=== PATIENT | female | born 1945 | race Caucasian/White ===

== ENCOUNTER → 2016-10-17 | Outpatient (CLI) | payer MEDICARE | LOC: SP 13:07 | PROVIDERS: ATTEND Family Medicine | DX: R60.9 Edema, unspecified (principal) | CPT/HCPCS: 93971 ==

== ENCOUNTER 2016-11-15 12:30 | Observation (INO) | payer MEDICARE ==
[2016-11-15] MEDS ORDERED: NORMAL SALINE 250 ML IV PRN ×4 (12:37→15:39)
[2016-11-15 12:52] LABS: HGB HCT DIFFERENCE -1.6; MEAN CORPUSCULAR HEMOGLOBIN 19.3 pg (27.0-33.4); MEAN CORPUSCULAR HGB CONC 29.7 g/dL (32.0-36.0); MEAN CORPUSCULAR VOLUME 65 fl (80-97); RED BLOOD COUNT 2.22 10^6/uL (3.72-5.28); RED CELL DISTRIBUTION WIDTH 18.8 % (11.5-14.0); WHITE BLOOD COUNT 11.1 10^3/uL (4.0-10.5)
[2016-11-15 13:04] LABS: HEMATOCRIT 14.5 % (36.0-47.0); HEMOGLOBIN 4.3 g/dL (12.0-15.5)
[2016-11-15 13:19] LABS: ALANINE AMINOTRANSFERASE 20 U/L (9-52); ALBUMIN 3.2 g/dL (3.5-5.0); ALKALINE PHOSPHATASE 84 U/L (38-126); ASPARTATE AMINO TRANSFERASE 32 U/L (14-36); BILIRUBIN,DIRECT 0.2 mg/dL (0.0-0.4); BILIRUBIN,TOTAL 0.4 mg/dL (0.2-1.3); BLOOD UREA NITROGEN 14 mg/dL (7-20); CHLORIDE 89 mmol/L (98-107); CREATININE RESULT 0.55 mg/dL (0.52-1.25); GLUCOSE 130 mg/dL (75-110); LIPASE 75.3 U/L (23-300); POTASSIUM 4.8 mmol/L (3.6-5.0); SODIUM 137.4 mmol/L (137-145); TOTAL PROTEIN 6.5 g/dL (6.3-8.2)
[2016-11-15 13:22] LABS: CREATINE KINASE < 20 U/L (30-135)
[2016-11-15 13:25] LABS: ANION GAP 9 (5-19)
[2016-11-15 13:27] LABS: ANISOCYTOSIS 2+; BASOPHILS % (MANUAL) 0 % (0-2); EOSINOPHILS % (MANUAL) 3 % (0-6); HYPOCHROMASIA 2+; LYMPHOCYTES % (MANUAL) 9 % (13-45); MICROCYTOSIS 4+; OVALOCYTES 1+; POIKILOCYTOSIS 1+; ROULEAUX SLIGHT; SCHISTOCYTES SLIGHT; TOTAL CELLS COUNTED 100; TOXIC GRANULATION SLIGHT; TOXIC VACUOLATION PRESENT
[2016-11-15 13:28] LABS: CARBON DIOXIDE 39 mmol/L (22-30)
[2016-11-15 13:30] LABS: CREATINE KINASE MB 0.31 ng/mL (<4.55); TROPONIN I < 0.012 ng/mL
--- NOTE | 2016-11-15 13:43 | EKG REPORT ---
SEVERITY:- BORDERLINE ECG - SINUS RHYTHM ATRIAL PREMATURE COMPLEX BORDERLINE T WAVE ABNORMALITIES : Confirmed by: John Hernandez MD 15-Nov-2016 13:42:33
[2016-11-15 14:15] LABS: APPEARANCE,URINE CLOUDY; BILIRUBIN,URINE NEGATIVE (NEGATIVE); GLUCOSE, URINE NEGATIVE (NEGATIVE); KETONES,URINE NEGATIVE (NEGATIVE); LEUKOCYTE ESTERASE,URINE NEGATIVE (NEGATIVE); NITRITE,URINE NEGATIVE (NEGATIVE); PROTEIN,URINE NEGATIVE (NEGATIVE); URINE SPECIFIC GRAVITY 1.016
--- NOTE | 2016-11-15 14:58 | ER Document Report ---
ED General - General Chief Complaint: Abnormal Lab Results Stated Complaint: ABNORMAL LABS Time seen by provider: 12:25 Mode of Arrival: Stretcher Information source: Patient, Relative Notes: 71-year-old female long history of anemia for which she says she gets periodic blood transfusions who is in the hospital lab today for a scheduled blood draw to check on her anemia. Patient was found to have a hemoglobin of 4 and complained to staff in the lab of dizziness and weakness lasted deposition operator to page her to emergency overhead to emergency department staff responded including this physician. Upon my arrival the patient was awake and alert and sitting up in wheelchair she was placed on stretcher brought to the emergency department. The patient reports chronically having dark stools because fired supplementation but denies any hematemesis or hematochezia. She reports she does have a prior history of GI bleed says she does not believe she is having any GI bleeding in the past several weeks. She denies syncope. She denies fever, chills, cough, shortness of breath with her baseline, vomiting, chest pain, abdominal pain, or back pain. She denies dysuria, vaginal bleeding or discharge. Physical Exam: General: Alert, appears weak HEENT: Normocephalic. Atraumatic. PERRLA. Extraocular movements intact. Oropharynx clear. Membranes moist Neck: Supple. Non-tender. No JVD no carotid bruits Respiratory: No respiratory distress. Clear and equal breath sounds bilaterally. Cardiovascular: Regular rate and rhythm. Abdominal: Normal Inspection. Soft, non-tender. No distension. Normal Bowel Sounds. atrophic female external genitalia no blood in vaginal vault rectal normal tone dark green to brown stool no hemorrhoids Back: Non-tender. No deformity or step off. Extremities: All tremors warm to plus pulses of cyanosis no edema Neurological: Speech clear mentation normal representative personal service strength 5 out of 5 equal both upper extremities motor function 5 out of 5 equal both lower extremities Psychological: Normal affect. Normal Mood. Skin: Warm. Dry. Normal color. TRAVEL OUTSIDE OF THE [place] IN LAST 30 DAYS: No - Related Data Allergies/Adverse Reactions: penicillin G [Penicillin G] Allergy (Severe, Verified 11/15/16 12:33) Shortness of Breath codeine [Codeine] Allergy (Verified 11/15/16 12:33) numb Past Medical History - Social History Smoking Status: Former Smoker Chew tobacco use (# tins/day): No Frequency of alcohol use: None Drug Abuse: None Family History: Reviewed & Not Pertinent - Past Medical History Cardiac Medical History: Reports: Hx Hypertension - ? Denies: Hx Coronary Artery Disease, Hx Heart Attack Pulmonary Medical History: Reports: Hx COPD, Hx Pneumonia Denies: Hx Asthma, Hx Bronchitis Neurological Medical History: Denies: Hx Cerebrovascular Accident, Hx Seizures GI Medical History: Reports: Other - Remote history of GI bleed Musculoskeltal Medical History: Reports Hx Arthritis - rheumatoid Past Surgical History: Reports: Hx Hysterectomy. Denies: Hx Pacemaker - Immunizations Hx Diphtheria, Pertussis, Tetanus Vaccination: Yes Review of Systems - Review of Systems Constitutional: See HPI EENT: denies: Ear pain, Throat pain, Mouth pain Cardiovascular: See HPI Respiratory: denies: Cough, Short of breath, Wheezing Gastrointestinal: See HPI Genitourinary: denies: Burning, Dysuria Female Genitourinary: Post menopausal Musculoskeletal: denies: Back pain, Leg swelling, Ankle swelling Skin: denies: Rash Hematologic/Lymphatic: denies: Swollen glands Neurological/Psychological: denies: Weakness, Numbness Physical Exam - Vital signs Vitals: Temp Resp 98.5 F 24 H 11/15/16 12:32 11/15/16 12:32 Course - Re-evaluation Re-evalutation: 11/15/16 15:00 Patient's initial pulse oximetry was 84% patient is chronically on oxygen may have come off that during transport. She is otherwise remained hemodynamically stable for given her complaints of dizziness and her markedly low hemoglobin believe she requires admission for transfusion. Stools also heme positive but is unclear to what extent active GI bleed contributing to her anemia. Will order IV Protonix have consult at Dr. cates hospitalist service for admission 11/15/16 15:04 Critical care time excluding billable procedures 47 minutes - Vital Signs Vital signs: Temp Pulse Resp BP Pulse Ox 98.5 F 22 H 102/55 L 94 11/15/16 12:32 11/15/16 14:01 11/15/16 14:01 11/15/16 14:01 - Laboratory Result Diagrams: 11/15/16 12:42 11/15/16 12:42 Laboratory results interpreted by me: 11/15/16 11/15/16 11/15/16 12:42 12:42 12:42 WBC 11.1 H RBC 2.22 L Hgb 4.3 L* Hct 14.5 L* MCV 65 L MCH 19.3 L MCHC 29.7 L RDW 18.8 H Plt Count 617 H Seg Neuts % (Manual) 81 H Lymphocytes % (Manual) 9 L Abs Neuts (Manual) 9.0 H Chloride 89 L Carbon Dioxide 39 H Glucose 130 H Creatine Kinase < 20 L Albumin 3.2 L Urine Urobilinogen Urine Ascorbic Acid Crossmatch See Detail 11/15/16 13:55 WBC RBC Hgb Hct MCV MCH MCHC RDW Plt Count Seg Neuts % (Manual) Lymphocytes % (Manual) Abs Neuts (Manual) Chloride Carbon Dioxide Glucose Creatine Kinase Albumin Urine Urobilinogen 2.0 H Urine Ascorbic Acid 40 H Crossmatch - Diagnostic Test Radiology reviewed: Image reviewed, Reports reviewed - EKG Interpretation by Me Additional EKG results interpreted by me: 11/15/16 14:58 EKG reviewed by myself sinus rhythm at 87 no acute changes Discharge - Discharge Clinical Impression: Near syncope Anemia Qualifiers: Anemia type: iron deficiency Iron deficiency anemia type: unspecified iron deficiency Qualified Code(s): D50.9 - Iron deficiency anemia, unspecified GI bleed Qualifiers: GI bleed type/associated pathology: unspecified gastrointestinal hemorrhage type Qualified Code(s): K92.2 - Gastrointestinal hemorrhage, unspecified Condition: Serious Disposition: ADMITTED INPATIENT Admitting Provider: Hospitalist Unit Admitted: [facility]
[2016-11-15] MEDS ORDERED: PANTOPRAZOLE SODIUM 40 MG VIAL IV ONE (15:02)
[2016-11-15] MEDS ORDERED: PANTOPRAZOLE SODIUM 40 MG VIAL IV PRN (15:02)
[2016-11-15] MEDS ORDERED: ACETAMINOPHEN 325 MG TABLET PO PRN ×2 (15:39→15:53)
[2016-11-15] MEDS ORDERED: NORMAL SALINE INJ/PF 0.9% 10 ML SDV IV PRN (15:39)
[2016-11-15] MEDS ORDERED: FUROSEMIDE INJ/PF 20 MG/2 ML SDV IV PRN (15:39)
[2016-11-15] MEDS ORDERED: ALBUTEROL SULFATE HFA (90 MCG/PUFF) 200 PUFF/8.5 GM MDI IH PRN (15:41)
--- NOTE | 2016-11-15 15:51 | PDOC H&P ---
History of Present Illness Admission Date/PCP: 11/15/16 15:23 Dr. Atwood History of Present Illness: DOMINIC JUNIOR is a 71 year old female with a known history of iron deficiency anemia/anemia of chronic disease secondary to underlying rheumatoid arthritis who presented to the emergency department after having a rapid response in the laboratory. Patient reports that she's always been anemic and has required chronic transfusions. She reports that her last episode of GI bleeding was approximately 2 years ago and she had a colonoscopy and upper endoscopy with Dr. Dumont. Patient was found to have a hemoglobin of 4.3. She is referred for evaluation. Past Medical History Cardiac Medical History: Reports: Hypertension - ? Denies: Coronary Artery Disease, Myocardial Infarction Pulmonary Medical History: Reports: Chronic Obstructive Pulmonary Disease (COPD) , Pneumonia Denies: Asthma, Bronchitis Neurological Medical History: Denies: Seizures GI Medical History: Reports: Other - Remote history of GI bleed Musculoskeltal Medical History: Reports: Arthritis - rheumatoid Hematology: Reports: Anemia Past Surgical History Past Surgical History: Reports: Appendectomy, Hysterectomy, Tonsillectomy Denies: Pacemaker Social History Smoking Status: Former Smoker Frequency of Alcohol Use: None Hx Recreational Drug Use: No Hx Prescription Drug Abuse: No - Advance Directive Resuscitation Status: Full Code Surrogate healthcare decision maker:: , Chicho Junior Family History Family History: Malignancy Parental Family History Reviewed: Yes Children Family History Reviewed: Yes Sibling(s) Family History Reviewed.: Yes Medication/Allergy Allergies/Adverse Reactions: penicillin G [Penicillin G] Allergy (Severe, Verified 11/15/16 12:33) Shortness of Breath codeine [Codeine] Allergy (Verified 11/15/16 12:33) numb Review of Systems Constitutional: PRESENT: fatigue, weakness. ABSENT: chills, fever(s), headache( s), weight gain, weight loss Eyes: ABSENT: visual disturbances Ears: ABSENT: hearing changes Cardiovascular: ABSENT: chest pain, dyspnea on exertion, edema, orthropnea, palpitations Respiratory: PRESENT: dyspnea. ABSENT: cough, hemoptysis Gastrointestinal: ABSENT: abdominal pain, coffee ground emesis, constipation, diarrhea, dysphagia, heartburn, hematemesis, hematochezia, melena, nausea, vomiting Genitourinary: ABSENT: dysuria, hematuria Musculoskeletal: ABSENT: joint swelling Integumentary: ABSENT: rash, wounds Neurological: ABSENT: abnormal gait, abnormal speech, confusion, dizziness, focal weakness, syncope Psychiatric: ABSENT: anxiety, depression, homidical ideation, suicidal ideation Endocrine: ABSENT: cold intolerance, heat intolerance, polydipsia, polyuria Hematologic/Lymphatic: ABSENT: easy bleeding, easy bruising Physical Exam Vital Signs: Temp Pulse Resp BP Pulse Ox 98.3 F 87 16 112/40 L 95 11/15/16 15:24 11/15/16 15:24 11/15/16 15:24 11/15/16 15:24 11/15/16 15:24 Intake & Output 11/14/16 11/15/16 11/16/16 06:59 06:59 06:59 Intake Total 0 Balance 0 Results Impressions: Chest X-Ray 11/15/16 12:35 IMPRESSION: PROBABLE CHRONIC INTERSTITIAL CHANGES. MILD HILAR FULLNESS PROBABLY DUE TO PROMINENT CENTRAL PULMONARY VESSELS. MILD ADENOPATHY CANNOT BE EXCLUDED. OTHERWISE NO ACUTE RADIOGRAPHIC FINDING IN THE CHEST. Assessment & Plan - Diagnosis (1) Iron deficiency anemia Qualifiers: Iron deficiency anemia type: unspecified iron deficiency Qualified Code(s): D50.9 - Iron deficiency anemia, unspecified Is this a current diagnosis for this admission?: YesPlan: At this time, patient is currently receiving blood. Patient is already on iron supplementation. (2) Anemia of chronic disease Is this a current diagnosis for this admission?: Yes (3) Rheumatoid arthritis Qualifiers: Rheumatoid factor presence: unspecified presence Laterality: bilateral Is this a current diagnosis for this admission?: YesPlan: Patient is no longer on methotrexate reports that she only takes Tylenol and occasionally one Aleve for her pain. (4) Chronic hypoxemic respiratory failure Is this a current diagnosis for this admission?: YesPlan: Continue oxygen. (5) COPD (chronic obstructive pulmonary disease) Qualifiers: COPD type: unspecified COPD Qualified Code(s): J44.9 - Chronic obstructive pulmonary disease, unspecified Is this a current diagnosis for this admission?: YesPlan: Will continue patient's home oxygen and breathing treatments. (6) Anemia Qualifiers: Anemia type: iron deficiency Iron deficiency anemia type: unspecified iron deficiency Qualified Code(s): D50.9 - Iron deficiency anemia, unspecified Is this a current diagnosis for this admission?: YesPlan: Patient's guaiac is positive. Will place patient on Protonix IV twice a day and monitor her serial hemoglobins. Will transfuse 4 units of packed red blood cells with Lasix in between. Will consult surgery if patient has any episodes of bleeding. Patient at this time denies any pain, hematochezia, or melena. (7) Near syncope Is this a current diagnosis for this admission?: YesPlan: Likely secondary to anemia (8) Heme + stool Is this a current diagnosis for this admission?: YesPlan: Patient is on iron and we will monitor the serially. If needed will consult for upper endoscopy. Defer pharmacologic prophylaxis at this time due to this. - Time Time Spent: 50 to 70 Minutes Medications reviewed and adjusted accordingly: Yes Anticipated discharge: Home Within: within 48 hours - Inpatient Certification Based on my medical assessment, after consideration of the patient's comorbidities, presenting symptoms, or acuity I expect that the services needed warrant INPATIENT care.: Yes I certify that my determination is in accordance with my understanding of Medicare's requirements for reasonable and necessary INPATIENT services [42 CFR 412.3e].: Yes Medical Necessity: Need For IV Fluids, Risk of Complication if Not Cared For in Hospital Post Hospital Care: D/C Line Director Documentation
[2016-11-15] MEDS ORDERED: ONDANSETRON HCL INJ/PF 4 MG/2 ML SDV IV PRN (15:53)
[2016-11-15] MEDS ORDERED: OXYCODONE-ACETAMINOPHEN 5-325 MG TABLET PO PRN (15:53)
[2016-11-15] MEDS ORDERED: FUROSEMIDE INJ/PF 40 MG/4 ML SDV IV ONE (20:48)
[2016-11-15 20:49] LABS: CREATINE KINASE MB 0.26 ng/mL (<4.55)
[2016-11-15 20:55] LABS: TROPONIN I < 0.012 ng/mL
[2016-11-15] MEDS: PANTOPRAZOLE SODIUM 40 MG VIAL IV SCH (21:30)
[2016-11-16 02:16] LABS: CREATINE KINASE MB 0.36 ng/mL (<4.55)
[2016-11-16 02:20] LABS: TROPONIN I < 0.012 ng/mL
[2016-11-16 08:27] LABS: BLOOD UREA NITROGEN 11 mg/dL (7-20); CHLORIDE 87 mmol/L (98-107); GLUCOSE 95 mg/dL (75-110); MAGNESIUM 1.6 mg/dL (1.6-2.3); POTASSIUM 4.5 mmol/L (3.6-5.0)
[2016-11-16 08:38] LABS: ANION GAP 6 (5-19); CREATINE KINASE < 20 U/L (30-135)
[2016-11-16 08:39] LABS: CARBON DIOXIDE 44 mmol/L (22-30)
[2016-11-16 08:44] LABS: TROPONIN I < 0.012 ng/mL
[2016-11-16] MEDS ORDERED: CITALOPRAM HYDROBROMIDE 20 MG TABLET PO SCH (10:00)
[2016-11-16] MEDS ORDERED: TIOTROPIUM BROMIDE DPI 5 CAP/KIT (18 MCG/CAP) IH SCH (10:00)
[2016-11-16] MEDS: PANTOPRAZOLE SODIUM 40 MG VIAL IV SCH (10:16)
[2016-11-16] MEDS ORDERED: (PENDING PHARMACY ID) (Metoclopramide Hcl [Metoclopramide Hcl] 5 MG) PO SCH (11:00)
[2016-11-16] MEDS ORDERED: METOCLOPRAMIDE HCL 10 MG TABLET PO SCH (11:00)
[2016-11-16] MEDS ORDERED: FUROSEMIDE INJ/PF 20 MG/2 ML SDV IV ONE (11:00)
[2016-11-16 11:52] LABS: HGB HCT DIFFERENCE 0.7; MEAN CORPUSCULAR HEMOGLOBIN 25.5 pg (27.0-33.4); MEAN CORPUSCULAR HGB CONC 34.1 g/dL (32.0-36.0); RED BLOOD COUNT 3.47 10^6/uL (3.72-5.28); RED CELL DISTRIBUTION WIDTH 25.9 % (11.5-14.0); WHITE BLOOD COUNT 11.7 10^3/uL (4.0-10.5)
[2016-11-16 12:20] LABS: HEMOGLOBIN 8.9 g/dL (12.0-15.5)
[2016-11-16 12:21] LABS: MEAN CORPUSCULAR VOLUME 75 fl (80-97)
[2016-11-16 13:16] VITALS: BP 122/49
--- NOTE | 2016-11-16 17:36 | PDOC DISCHARGE SUMMARY ---
General - Admit/Disc Date/PCP Admission Date/Primary Care Provider: 11/15/16 15:53 Discharge Date: 11/16/16 - Discharge Diagnosis (1) Iron deficiency anemia Is this a current diagnosis for this admission?: Yes (2) Anemia of chronic disease Is this a current diagnosis for this admission?: Yes (3) Rheumatoid arthritis Is this a current diagnosis for this admission?: Yes (4) Chronic hypoxemic respiratory failure Is this a current diagnosis for this admission?: Yes (5) COPD (chronic obstructive pulmonary disease) Is this a current diagnosis for this admission?: Yes (6) Anemia Is this a current diagnosis for this admission?: Yes (7) Near syncope Is this a current diagnosis for this admission?: Yes (8) Heme + stool Is this a current diagnosis for this admission?: Yes - Additional Information Resuscitation Status: Full Code Discharge Diet: Regular Discharge Activity: Activity As Tolerated, Balance Activity w/Rest Home Medications: Albuterol Sulfate [Proair HFA] 2 puff IH Q6HP PRN 11/15/16 Citalopram Hydrobromide [Celexa 20 mg Tablet] 20 mg PO DAILY 11/15/16 Lisinopril/Hydrochlorothiazide [Zestoretic 20-12.5 mg Tablet] 1 tab PO DAILY Metoclopramide HCl 5 mg PO ACHS 11/15/16 Montelukast Sodium 10 mg PO QPM 11/15/16 Omeprazole 20 mg PO [id number] 11/15/16 Fluticasone/Salmeterol [Advair 250-50 Diskus 28 dose] 1 inh IH Q12H #1 inhaler 11/16/16 Furosemide [Lasix] 20 mg PO DAILY #5 tablet 11/16/16 Tiotropium [place] [Spiriva Handihaler 18 mcg/dose (30 Dose)] 1 cap IH DAILY # 30 capsule 11/16/16 History of Present Illness History of Present Illness: DOMINIC LEIGH is a 71 year old female with a known history of iron deficiency anemia/anemia of chronic disease secondary to underlying rheumatoid arthritis who presented to the emergency department after having a rapid response in the laboratory. Patient reports that she's always been anemic and has required chronic transfusions. She reports that her last episode of GI bleeding was approximately 2 years ago and she had a colonoscopy and upper endoscopy with Dr. Dumont. Patient was found to have a hemoglobin of 4.3. She is referred for evaluation. Hospital Course Hospital Course: She was transfused and brought up to hemoglobin of 8.9. Patient did require some Lasix in between. Patient prefers to have GI evaluation as an outpatient. Family did express some concerns over patient's mobility issues; however, patient declines rehabilitation placement at this time. Patient is no longer on any disease modifying medications for her rheumatoid arthritis. She is advised to follow-up with rheumatology for this. Patient is advised to follow- up with Dr. Dumont. Physical Exam Vital Signs: Temp Pulse Resp BP Pulse Ox 98.8 F 94 18 122/49 L 95 11/16/16 13:07 11/16/16 13:07 11/16/16 13:07 11/16/16 13:07 11/16/16 13:07 Intake & Output 11/15/16 11/16/16 11/17/16 06:59 06:59 06:59 Intake Total 2627 700 Output Total 1000 Balance 1627 700 Weight 63.5 kg Exam: General: Awake alert and orientedx3, no acute respiratory distress HEENT: AT/NC, PERRL, EOMI, oropharynx is moist, pink, no scleral icterus, no conjunctival injection Neck: No JVD, trachea midline Chest: Mild tachypnea, light right sided end expiratory wheeze CV: Regular rate and rhythm, normal S1 and S2, no rub or gallop; +3/6 sm Abdomen: Soft, nontender to palpation, nondistended, active bowel sounds; no rebound, rigidity, or guarding Extremities: No cyanosis, clubbing; 2+edema, rheumatic changes Neuro: Cranial nerves II through XII are grossly intact without focal deficits; awake alert and oriented x3 Psych: Normal mood and affect Results Laboratory Results: 11/16/16 11:31 11/16/16 07:40 11/16/16 11/16/16 07:40 11:31 WBC 11.7 H RBC 3.47 L Hgb 8.9 L D Hct 26.0 L MCV 75 L D MCH 25.5 L MCHC 34.1 RDW 25.9 H Plt Count 492 H Sodium 137.0 Potassium 4.5 Chloride 87 L Carbon Dioxide 44 H* Anion Gap 6 BUN 11 Creatinine 0.60 Est GFR ( Amer) > 60 Est GFR (Non-Af Amer) > 60 Glucose 95 Calcium 9.0 Magnesium 1.6 11/15/16 11/15/16 11/16/16 19:40 19:40 01:42 Creatine Kinase < 20 L < 20 L CK-MB (CK-2) 0.26 Troponin I < 0.012 11/16/16 11/16/16 11/16/16 01:42 07:40 07:40 Creatine Kinase < 20 L CK-MB (CK-2) 0.36 0.40 Troponin I < 0.012 < 0.012 Impressions: Chest X-Ray 11/15/16 12:35 IMPRESSION: PROBABLE CHRONIC INTERSTITIAL CHANGES. MILD HILAR FULLNESS PROBABLY DUE TO PROMINENT CENTRAL PULMONARY VESSELS. MILD ADENOPATHY CANNOT BE EXCLUDED. OTHERWISE NO ACUTE RADIOGRAPHIC FINDING IN THE CHEST. Qualifiers PATEINT BEING DISCHARGED WITH ANY OF THE FOLLOWING DIAGNOSIS?: No Plan Time Spent: Less than 30 Minutes
[2016-11-16] MEDS ORDERED: MONTELUKAST SODIUM 10 MG TABLET PO SCH (18:00)
[2016-11-17] MEDS ORDERED: LANSOPRAZOLE 15 MG TAB.RAP.DR PO SCH (08:00)
== END 2016-11-16 13:55 | disposition home or self-care (01) ==
LOC: ER 12:30 → UNDOADMIN 15:23 → EH 15:23 → INTOOBSV 15:53 → EH 15:53 → 3S 18:28
PROVIDERS: ADMIT Family Medicine; ATTEND Family Medicine
PROC: 30233N1 Transfusion of Nonautologous Red Blood Cells into Peripheral Vein, Percutaneous Approach (ICD-10-PCS; principal; 2016-11-15)
PROC: 30233N1 Transfusion of Nonautologous Red Blood Cells into Peripheral Vein, Percutaneous Approach (ICD-10-PCS; 2016-11-16)
DX: M06.9 Rheumatoid arthritis, unspecified (principal); D50.9 Iron deficiency anemia, unspecified; D63.8 Anemia in other chronic diseases classified elsewhere; J96.11 Chronic respiratory failure with hypoxia; J44.9 Chronic obstructive pulmonary disease, unspecified; R55 Syncope and collapse; R19.5 Other fecal abnormalities; Z79.899 Other long term (current) drug therapy; Z90.49 Acquired absence of other specified parts of digestive tract; Z90.710 Acquired absence of both cervix and uterus; Z87.891 Personal history of nicotine dependence; Z80.9 Family history of malignant neoplasm, unspecified; Z87.19 Personal history of other diseases of the digestive system; Z78.0 Asymptomatic menopausal state; Z99.81 Dependence on supplemental oxygen
CPT/HCPCS: 93005; 99291; 86900; 86901; 36415 ×2; 87086; 82553 ×2; 36430; 86850; 82550 ×2; 83690; 83735; 85025; 85027; 82272; 80048; 80053; 81001; 84484 ×2; 86920; 83605; 71010; 93010; G0378 ×3; P9016 ×2; J3490 ×2; J1940 ×2; A9270 ×2; C9113 ×2; S0164

== ENCOUNTER → 2016-11-15 | Outpatient (CLI) | payer MEDICARE ==
[2016-11-15 12:19] LABS: HGB HCT DIFFERENCE -1.1; MEAN CORPUSCULAR HEMOGLOBIN 19.9 pg (27.0-33.4); MEAN CORPUSCULAR HGB CONC 30.6 g/dL (32.0-36.0); MEAN CORPUSCULAR VOLUME 65 fl (80-97); RED BLOOD COUNT 2.07 10^6/uL (3.72-5.28); RED CELL DISTRIBUTION WIDTH 19.1 % (11.5-14.0); WHITE BLOOD COUNT 9.7 10^3/uL (4.0-10.5)
[2016-11-15 12:28] LABS: HEMATOCRIT 13.4 % (36.0-47.0)
[2016-11-15 12:55] LABS: HEMOGLOBIN 4.1 g/dL (12.0-15.5)
[2016-11-19 19:53] LABS: PATH REVIEW PATHOLOGIST REVIEWED
== END ==
LOC: LB 11:42
PROVIDERS: ATTEND Family Medicine
DX: D64.9 Anemia, unspecified (principal)
CPT/HCPCS: 36415; 82962; 85027